=== PATIENT | male | born 1940 | race Caucasian/White ===

== ENCOUNTER → 2016-09-09 | Outpatient (CLI) | payer OTHER, BC | LOC: HYPER 06:54 | DX: L97.311 Non-pressure chronic ulcer of right ankle limited to breakdown of skin (principal); E03.9 Hypothyroidism, unspecified; Z87.891 Personal history of nicotine dependence; Z72.89 Other problems related to lifestyle ==

== ENCOUNTER → 2016-09-23 | Outpatient (CLI) | payer OTHER, BC | LOC: HYPER 07:04 | DX: L97.311 Non-pressure chronic ulcer of right ankle limited to breakdown of skin (principal); E03.9 Hypothyroidism, unspecified; Z87.891 Personal history of nicotine dependence; Z72.89 Other problems related to lifestyle ==

== ENCOUNTER → 2016-10-15 | Outpatient (CLI) | payer OTHER, BC | LOC: HYPER 07:05 | DX: L97.311 Non-pressure chronic ulcer of right ankle limited to breakdown of skin (principal); E03.9 Hypothyroidism, unspecified; Z87.891 Personal history of nicotine dependence; Z72.89 Other problems related to lifestyle ==

== ENCOUNTER → 2016-11-12 | Outpatient (CLI) | payer OTHER, BC | LOC: HYPER 07:03 | DX: S91.001D Unspecified open wound, right ankle, subsequent encounter (principal); L97.311 Non-pressure chronic ulcer of right ankle limited to breakdown of skin; E03.9 Hypothyroidism, unspecified; Z87.891 Personal history of nicotine dependence; Z72.89 Other problems related to lifestyle; X58.XXXD Exposure to other specified factors, subsequent encounter ==

== ENCOUNTER → 2017-12-17 | Outpatient (CLI) | payer OTHER, BC | LOC: HYPER 06:38 | DX: L89.512 Pressure ulcer of right ankle, stage 2 (principal); L89.522 Pressure ulcer of left ankle, stage 2; G71.00 Muscular dystrophy, unspecified; E03.9 Hypothyroidism, unspecified; Z79.82 Long term (current) use of aspirin; Z87.891 Personal history of nicotine dependence ==

== ENCOUNTER → 2018-01-20 | Outpatient (CLI) | payer OTHER, BC | LOC: HYPER 01-01 09:58 | DX: L89.512 Pressure ulcer of right ankle, stage 2 (principal); L89.522 Pressure ulcer of left ankle, stage 2; G71.00 Muscular dystrophy, unspecified; E03.9 Hypothyroidism, unspecified; Z87.891 Personal history of nicotine dependence ==

== ENCOUNTER → 2018-03-11 | Outpatient (CLI) | payer OTHER, BC | LOC: HYPER 03-03 06:42 | DX: L89.512 Pressure ulcer of right ankle, stage 2 (principal); L89.522 Pressure ulcer of left ankle, stage 2; E03.9 Hypothyroidism, unspecified; G71.00 Muscular dystrophy, unspecified; Z87.891 Personal history of nicotine dependence ==

== ENCOUNTER → 2018-04-08 | Outpatient (CLI) | payer OTHER, BC | LOC: HYPER 04-01 07:41 | DX: L89.512 Pressure ulcer of right ankle, stage 2 (principal); L89.522 Pressure ulcer of left ankle, stage 2; E03.9 Hypothyroidism, unspecified; G71.00 Muscular dystrophy, unspecified; Z87.891 Personal history of nicotine dependence ==

== ENCOUNTER → 2018-07-15 | Outpatient (CLI) | payer OTHER, BC | LOC: HYPER 05-06 11:37 | DX: L89.512 Pressure ulcer of right ankle, stage 2 (principal); L89.522 Pressure ulcer of left ankle, stage 2; E03.9 Hypothyroidism, unspecified; G71.00 Muscular dystrophy, unspecified; Z87.891 Personal history of nicotine dependence ==

== ENCOUNTER → 2019-03-24 | Outpatient (CLI) | payer OTHER, BC | LOC: HYPER 10:21 | DX: L89.523 Pressure ulcer of left ankle, stage 3 (principal); L89.512 Pressure ulcer of right ankle, stage 2; E66.01 Morbid (severe) obesity due to excess calories; E03.9 Hypothyroidism, unspecified; G71.00 Muscular dystrophy, unspecified; Z68.24 Body mass index [BMI] 24.0-24.9, adult; Z90.49 Acquired absence of other specified parts of digestive tract; Z87.891 Personal history of nicotine dependence ==

== ENCOUNTER → 2019-04-26 | Outpatient (CLI) | payer OTHER, BC | LOC: HYPER 10:20 | DX: L89.523 Pressure ulcer of left ankle, stage 3 (principal); G71.00 Muscular dystrophy, unspecified; E03.9 Hypothyroidism, unspecified; Z87.891 Personal history of nicotine dependence ==

== ENCOUNTER → 2019-11-10 | Outpatient (CLI) | payer OTHER, BC | LOC: HYPER 08:20 | PROVIDERS: ATTEND Emergency Medicine | DX: L89.523 Pressure ulcer of left ankle, stage 3 (principal); L84 Corns and callosities; G71.00 Muscular dystrophy, unspecified; E03.9 Hypothyroidism, unspecified; E66.01 Morbid (severe) obesity due to excess calories; Z87.891 Personal history of nicotine dependence; Z90.49 Acquired absence of other specified parts of digestive tract; Z68.24 Body mass index [BMI] 24.0-24.9, adult ==

== ENCOUNTER → 2019-11-29 | Outpatient (CLI) | payer OTHER, BC | LOC: HYPER 13:59 | PROVIDERS: ATTEND Emergency Medicine | DX: L89.523 Pressure ulcer of left ankle, stage 3 (principal); L89.512 Pressure ulcer of right ankle, stage 2; E66.01 Morbid (severe) obesity due to excess calories; E03.9 Hypothyroidism, unspecified; G71.00 Muscular dystrophy, unspecified; Z87.891 Personal history of nicotine dependence; Z68.24 Body mass index [BMI] 24.0-24.9, adult ==